=== PATIENT | male | born 1980 | race Caucasian/White ===

== ENCOUNTER 2017-01-12 12:11 | Emergency (ER) | payer OTHER ==
[2017-01-12 12:23] VITALS: BP 123/64; PULSE 61; O2SAT 99
--- NOTE | 2017-01-12 12:36 | ERPHSYRPT ---
- History of Present Illness Time Seen by Provider: 01/12/17 12:13 Source: patient Patient Subjective Stated Complaint: pt states he has had a sore throat for the past 2 days. Triage Nursing Assessment: pt pink, warm, dry. throat red. pt afebrile. Physician History: CC: sore throat hx; 36 y/o patient of Dr Bhatti with sore throat for 2 days. He has some cough , hoarse voice, malaise. Ears pressure. No rash. Nonsmoker but chews. Works pap Incentive. Takes xanax and norco. Timing/Duration: day(s) (2) Allergies/Adverse Reactions: Penicillins Allergy (Verified 01/12/17 12:23) Home Medications: Alprazolam 1 mg [Xanax 1 mg] 1 mg PO BID 07/27/14 [History] Hydrocodone Bit/Acetaminophen [Hydrocodon-Acetaminoph 7.5-325] 1 each PO BID [History] Hx Tetanus, Diphtheria Vaccination/Date Given: Yes (up tto date) Hx Influenza Vaccination/Date Given: No Hx Pneumococcal Vaccination/Date Given: No Immunizations Up to Date: Yes - Review of Systems Constitutional: Malaise, No Fever, No Chills Eyes: No Symptoms Ears, Nose, & Throat: Throat Pain, Hoarse, Painful Swallowing Respiratory: Cough (mild) Abdominal/Gastrointestinal: No Abdominal Pain, No Nausea, No Vomiting Skin: No Rash Neurological: No Headache All Other Systems: Reviewed and Negative - Past Medical History Pertinent Past Medical History: Yes Neurological History: No Pertinent History ENT History: No Pertinent History Cardiac History: No Pertinent History Respiratory History: No Pertinent History Endocrine Medical History: Liver Disease Musculoskeletal History: Other GI Medical History: Hepatitis History: No Pertinent History Psycho-Social History: Anxiety Male Reproductive Disorders: STD's Other Medical History: chronic pain - Past Surgical History Past Surgical History: Yes Neuro Surgical History: No Pertinent History Cardiac: No Pertinent History Respiratory: No Pertinent History Gastrointestinal: No Pertinent History Genitourinary: No Pertinent History Musculoskeletal: Orthopedic Surgery Male Surgical History: No Pertinent History Other Surgical History: Hip surgery, Fx of pelvis and hip in - Social History Smoking Status: Never smoker Exposure to second hand smoke: No Drug Use: none Patient Lives Alone: No - Nursing Vital Signs Nursing Vital Signs: Initial Vital Signs Temperature 97.6 F 01/12/17 12:18 Pulse Rate 61 01/12/17 12:18 Respiratory Rate 18 01/12/17 12:18 Blood Pressure 123/64 01/12/17 12:18 O2 Sat by Pulse Oximetry 99 01/12/17 12:18 Pain Scale Pain Intensity 6 - Physical Exam General Appearance: alert Eye Exam: PERRL/EOMI Ears, Nose, Throat Exam: TMs normal, moist mucous membranes, pharyngeal erythema , No tonsillar exudate Neck Exam: normal inspection Respiratory Exam: normal breath sounds Cardiovascular Exam: regular rate/rhythm, No murmur Gastrointestinal/Abdomen Exam: soft, No tenderness, No distention, No organomegaly Back Exam: normal inspection, normal range of motion Extremity Exam: normal inspection, normal range of motion Neurologic Exam: alert, oriented x 3, cooperative, sensation nml, No motor deficits Skin Exam: warm, dry, No rash SpO2 Interpretation: normal SpO2: 99 Oxygen Delivery: Room Air - Course Nursing assessment & vital signs reviewed: Yes Ordered Tests: Active Orders 24 hr Category Date Time Status CULTURE, THROAT Stat Lab 01/12/17 12:38 Received STREP SCREEN-BETA A Stat Lab 01/12/17 12:38 Completed Lab/Rad Data: Laboratory Results 01/12/17 Range/Units 12:38 Streptococcus Screen NEGATIVE (Negative) - Progress Progress Note: 01/12/17 13:04 Strep negative. Abtx not indicated. He is adament to have steroid injection for symptoms relief. Discussed potential side effects. Counseled pt/family regarding: lab results, diagnosis, need for follow-up - Departure Time of Disposition: 13:04 Departure Disposition: Home Clinical Impression: Acute pharyngitis Qualifiers: Pharyngitis/tonsillitis etiology: other specified organisms Qualified Code(s): J02.8 - Acute pharyngitis due to other specified organisms Condition: Stable Critical Care Time: No Referrals: DREW BHATTI [Primary Care Provider] - Instructions: Viral Pharyngitis Additional Instructions: SORE THROAT 1. If you are prescribed antibiotics, you should finish the entire prescription as directed. 2. Many sore throats are caused by viruses and antibiotics will not help. 3. Acetaminophen or Ibuprofen as directed for fever or discomfort. 4. Cool liquids may help the pain of sore throat.
[2017-01-12] MEDS ORDERED: DECADRON 10MG INJ. IM ONE (13:03)
[2017-01-12] MEDS ORDERED: DECADRON 10MG INJ. ONE (13:06)
== END 2017-01-12 13:30 | disposition home or self-care (01) ==
LOC: ED 12:11
DX: J02.8 Acute pharyngitis due to other specified organisms (principal); Z79.891 Long term (current) use of opiate analgesic
CPT/HCPCS: 87070; 87430; 96372; 99284; J1100

== ENCOUNTER 2023-03-15 07:55 | Day surgery (SDC) | payer OTHER ==
--- NOTE | 2023-03-08 14:57 | HP ---
DATE OF SURGERY: 03/15/2023 HISTORY OF PRESENT ILLNESS: The patient is a 42-year-old male presents with dysphagia. He has had trouble swallowing for a long time. He has fluids and food that are getting stuck. He does have some heartburn. He has not had EGD in the past. PAST MEDICAL HISTORY: Chronic pain, anxiety. PAST SURGICAL HISTORY: Right hip. Left hip. ALLERGIES: PENICILLIN. MEDICATIONS: Xanax, Suboxone. FAMILY HISTORY: None reported. SOCIAL HISTORY: Occasional alcohol. REVIEW OF SYSTEMS: CONSTITUTIONAL: Denies fever or chills. CHEST: Denies shortness of breath. CVS: Denies chest pain. ABDOMEN: Denies abdominal pain. PHYSICAL EXAMINATION: GENERAL: No acute distress. CHEST: Nonlabored. No shortness of breath. CVS: Regular rate and rhythm. ABDOMEN: Soft. IMPRESSION: Dysphagia. PLAN: EGD with possible dilatation with Dr. Josh Crisostomo. As dictated by Tabatha Bell NP.
[2023-03-15 08:16] VITALS: RESP 18
[2023-03-15] MEDS ORDERED: Lactated Ringers 1,000 ML IV ONE (08:20)
[2023-03-15] MEDS ORDERED: Lactated Ringers 1,000 ML IV SCH (08:30)
[2023-03-15] MEDS ORDERED: Versed 2 MG/2 ML Injection ONE (09:46)
[2023-03-15] MEDS ORDERED: DIPRIVAN 200 MG/20 ML IV ONE (09:46)
[2023-03-15 10:41] VITALS: TEMP 97.3; O2SAT 97
--- NOTE | 2023-03-15 10:48 | OP ---
SURGERY DATE/TIME: 03/15/2023 0951 PREOPERATIVE DIAGNOSIS: Dysphagia. POSTOPERATIVE DIAGNOSES: 1) Esophageal stricture with grade 3 over 4 gastroesophageal reflux disease. 2) The patient has a healing gastric ulcer about 1 inch from the pylorus. PROCEDURES: 1) EGD with cold biopsy of antrum. 2) Esophageal dilatation sizes 48 and 50 Tong with repeat examination after dilatation. SURGEON: Josh Crisostomo M.D. CNC MACHINE PROGRAMMER: Cassia Sotelo, Medical Student III. ANESTHESIA: General. COMPLICATIONS: None. CONDITION: Stable. INDICATION: The patient has dysphagia. It comes and goes. It is worse sometimes when he is eating out, a little more rapidly in a restaurant and eating a big meal. It has been a little progressive in nature. He has not had endoscopic exam. DESCRIPTION OF PROCEDURE: He is taken to endoscopy. Left lateral decubitus position. MAC sedation provided. Scope introduced. Scope was advanced through the esophagus, through the gastroesophageal junction into the stomach. There was an ulcer about an inch from the pylorus. Pylorus satisfactory. Duodenal bulb satisfactory. Second portion satisfactory. He had a bifid ampullary area which I think he has a main duct which was biliary and had bile and then he had the smaller duct below this I think substantially pancreatic. It had some clear juice coming out. Very excellent anatomy here. There was absolutely nothing wrong in his duodenum. Coming back in the stomach, scope looped upon itself. There was no hiatal hernia. A digital sales representative cold biopsy for Helicobacter pylori. The ulcer was trying to heal. It looked totally benign. In the esophagus, the gastroesophageal junction was substantial grade 2 - grade 3 esophagitis. It did have a stricture so it did classify as grade 3. There was a little bit of holding up of the mucosa coming out of the stomach onto the esophageal edge on the left posterior corner. A size 48 dilator was placed. A scope was placed. A size 50 dilator. The scope was placed. It had been successfully dilated to size 50 and there was no suggestion of any bariatric injury. The patient tolerated the procedure satisfactorily. He was placed on Protonix. Findings discussed with his dad in the waiting room.
[2023-03-15 10:56] VITALS: BP 97/57; PULSE 68
== END 2023-03-15 10:57 | disposition home or self-care (01) ==
LOC: SDC 07:55
PROVIDERS: ATTEND Surgery
DX: K21.9 Gastro-esophageal reflux disease without esophagitis (principal); R13.10 Dysphagia, unspecified; K22.2 Esophageal obstruction; K25.9 Gastric ulcer, unspecified as acute or chronic, without hemorrhage or perforation; K29.70 Gastritis, unspecified, without bleeding
CPT/HCPCS: J2250; J2704

== ENCOUNTER 2024-04-13 18:28 | Emergency (ER) | payer OTHER ==
[2024-04-13 19:07] VITALS: PULSE 103; RESP 18; TEMP 97
[2024-04-13 21:21] LABS: Appearance Clear (Clear); Bacteria None Seen /HPF (None Seen); Bilirubin Negative (Negative); Blood Negative (Negative); Epithelial Cells None Seen /HPF (None Seen); Glucose, Urine Negative (Negative); Hyaline Casts NONE SEEN /LPF (0-2); Ketones Trace (Negative); Leukocyte Esterase Negative (Negative); Nitrite Negative (Negative); Ph 7.5 (4.6-8.0); Protein,Urine Dip Trace (Negative); Specific Gravity 1.025 (1.005-1.030); WBC 0-2 /HPF (0-5)
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
[2024-04-13 21:48] LABS: INFLUENZA A NEGATIVE (NEGATIVE); INFLUENZA B NEGATIVE (NEGATIVE); RESPIRATORY SYNCTIAL VIRUS NEGATIVE (NEGATIVE); SARS-CoV-2 Xpert Express NEGATIVE (NEGATIVE)
[2024-04-13 22:09] VITALS: BP 118/67
[2024-04-13 22:43] LABS: CHLAMYDIA DNA NOT DETECTED (NEGATIVE); GC DNA Probe NOT DETECTED (NEGATIVE)
[2024-04-13 22:59] VITALS: O2SAT 97
== END 2024-04-13 23:07 | disposition home or self-care (01) ==
LOC: ED 18:28
DX: R05.9 Cough, unspecified (principal); J06.9 Acute upper respiratory infection, unspecified; R63.4 Abnormal weight loss; Z79.891 Long term (current) use of opiate analgesic; Z79.899 Other long term (current) drug therapy; Z59.41 Food insecurity
CPT/HCPCS: 0241U; 81001; 87491; 87591; 99283; 99282